=== PATIENT | male | born 2000 | race Caucasian/White ===

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

== ENCOUNTER 2023-07-27 01:00 | Emergency (ER) | payer OTHER ==
[2023-07-27 01:22] VITALS: BP 144/95; PULSE 91; RESP 19; TEMP 99.1; BMI 25.0
== END 2023-07-27 02:18 | disposition home or self-care (01) ==
LOC: FER 01:00
DX: Z77.21 Contact with and (suspected) exposure to potentially hazardous body fluids (principal)
CPT/HCPCS: 99282-25